=== PATIENT | female | born 1990 | race Caucasian/White ===

== ENCOUNTER 2021-07-17 07:08 | Outpatient (REF) | payer OTHER, SELFPAY ==
[2021-07-17 11:19] LABS: MANUAL DIFF FLAG NO
[2021-07-17 11:30] LABS: Basophils Percent Auto 0.4 % (0-2); Eosinophils Absolute Auto 0.3 X10*3/uL (0.0-0.4); Eosinophils Percent Auto 3.6 % (0-4); Hematocrit 41.3 % (37.0-47.0); Imm Gran Abs Auto 0.02 X10*3/uL (0.00-0.03); Imm Gran Pct Auto 0.3 % (0.0-0.4); Lymphocytes Absolute Auto 2.7 X10*3/uL (1.2-4.9); Lymphocytes Percent Auto 35.7 % (20-40); Mean Corpuscular HGB Conc 33.9 g/dl (31.0-35.0); Mean Corpuscular Hemoglobin 30.8 pg (27.0-33.0); Mean Corpuscular Volume 90.8 fL (80.0-98.0); Mean Platelet Volume 11.2 fL (9.4-12.3); Monocytes Absolute Auto 0.8 X10*3/uL (0.1-1.2); Neutrophils Absolute Auto 3.8 x10*3/uL (2.0-8.3); Platelet Count 213 X10*3/uL (160-400); Red Blood Count 4.55 X10*6/uL (4.20-5.50); White Blood Count 7.6 X10*3/uL (4.8-10.8)
[2021-07-17 11:43] LABS: Alanine Aminotransferase 12 U/L (0-31); Albumin Level 4.2 g/dL (3.5-5.0); Alkaline Phosphatase 31 U/L (39-117); Anion Gap 12 (12-20); Aspartate Amino Transferase 13 U/L (5-31); Bilirubin Total 0.6 mg/dL (0.0-1.0); Blood Urea Nitrogen 10 mg/dL (9-16); Calcium 8.9 mg/dL (8.4-10.2); Carbon Dioxide 23 mmol/L (22-29); Chloride 108 mmol/L (96-108); Cholesterol 128 mg/dL; Estimated Glomerular Filt Rate > 60; Glucose Fasting 88 mg/dL (60-99); HDL Cholesterol 50 mg/dL; LDL Cholesterol Calculated 66 mg/dl; Sodium 139 mmol/L (135-145); Total Protein 6.9 g/dL (6.5-8.0); Triglycerides 60 mg/dL
[2021-07-17 12:03] LABS: TSH reflex Free T4 1.27 uIU/mL (0.32-4.0)
== END 2021-07-17 07:09 | disposition home or self-care (01) ==
LOC: HO.HMGCLDS 07:08
PROVIDERS: PCP Internal Medicine; Visit Provider Internal Medicine
DX: Z00.01 Encounter for general adult medical examination with abnormal findings (principal); L74.510 Primary focal hyperhidrosis, axilla
CPT/HCPCS: 36415; 80053; 80061; 84443; 85025

== ENCOUNTER 2023-08-04 14:28 | Outpatient (AMB) | payer OTHER, SELFPAY ==
[2023-08-04 14:31] VITALS: BP 112/66; PULSE 94; O2SAT 98; BMI 20.6
--- NOTE | 2023-08-04 14:31 | A.OFFPC_ITS ---
Vital Signs 08/04/23 14:31 Height 5 ft 4 in Weight 120 lb 2 oz BMI 20.6 BP 112/66 Blood Pressure Location Rt brachial Position Sitting Pulse 94 Pulse Source Pulse Oximeter Pulse Oximetry (%) 98 Oxygen Delivery Method Room Air Intake Visit Reasons: ED F/U Double Vision ~ Blow Pit Helper Required: No Accompanied by: Self / Same As Patient Allergies No Known Allergies Allergy (Verified 08/04/23 14:34) Medication List - Last Reconciled 08/04/23 by Dae Stapleton MD No Known Home Meds Tobacco use date assessed: 08/04/23 Dental Screening Dental Screen Date: 08/04/23 Did you have a dental visit in the last 12 months?: Yes Did you have a dental problem in the last 6 months where you did not have access to dental care?: No Was dental information given to patient?: Patient has dentist HPI ED F/U Double Vision ~ HPI Details Patient is 33-year-old female came in today to have emergency room discharge visit dated 07/27/2023 [facility]. Patient presented to emergency room with chief complaint of difficulty in vision. Patient states she woke up in the morning and began to feel vision changes she was having diplopia, . She had difficulty walking due to double vision There was no numbness or tingling in hands or feet. There were no other symptoms no nausea vomiting chest pain shortness Of breath. No headache. However she has a family history of migraine headache Patient also have allergies and sometimes feel pressure around forehead, Zyrtec helps relieve that pressure. Patient also had COVID infection last year in July In the hospital Patient had CT of head and CTA of head and neck which were normal Chest x-ray was normal EKG was normal Labs were within normal limit Neurology team recommended additional labs Like ESR/CRP, TSH, hemoglobin A1c, myasthenia labs including binding, blocking, modulating and Anti MUSK Patient says that they were drawn but not available at this time She is back to her normal baseline there is no more visual changes no other neurological symptoms I will be placing a referral for her to be evaluated by Neurology as an outpatient. Possibility of complicated migraine discussed with the patient [facility] Family History Father No problems noted. Mother No problems noted. Maternal Uncle Skin cancer Social History Housing: House Patient Tobacco Use Status: Never used Tobacco e-Cigarette/Vaping Use: Never Used service: No Current occupational status: employed Cognitive needs: No Hearing needs: No Vision needs: Yes Questionnaire PHQ-9 Over the last 2 weeks, how often have you been bothered by any of the following problems? 1. Little interest or pleasure in doing things: not at all 2. Feeling down, depressed, or hopeless: not at all 3. Trouble falling or staying asleep, or sleeping too much: not at all 4. Feeling tired or having little energy: not at all 5. Poor appetite or overeating: not at all 6. Feeling bad about yourself - or that you are a failure or have let yourself or your family down: not at all 7. Trouble concentrating on things, such as reading the newspaper or watching television: not at all 8. Moving or speaking so slowly that other people could have noticed. Or the opposite - being so fidgety or restless that you have been moving around a lot more than usual: not at all 9. Thoughts that you would be better off or of hurting yourself in some way: not at all Total score: 0 Depression Screening Interpretation: Negative Depression Screening Done: Yes 99505 - PHQ-9 Billing: Yes Source: Developed by Drs. Mayur Franks, Ladonna Jackson, Macario Jordan and colleagues, with an educational katrina from [employer]. Thrive Questionnaire Date Thrive assessed: 08/04/23 I am a: Patient What is your living situation today?: I have a steady place to live Within the past 12 months, did the food you bought not last and you didn't have the money to get more?: Never true Within the past 12 months, did you worry whether your food would run out before you got money to buy more?: Never true Do you have trouble paying for medicines?: No Do you have trouble getting transportation to medical appointments?: No Do you have trouble paying your heating and electricity bill?: No Do you have trouble taking care of your child, family member or friend?: No Do you have trouble with day-to-day activities such as bathing, preparing meals, shopping, managing finances, etc.?: No Are you currently unemployed and looking for a job?: No Are you interested in more education?: No Please select the resources that you would like help with: None Currently or been in a relationship where the following occur: no concerns repo rted AUDIT C Alcohol Use Questionnaire (AUDIT-C) 1. How often do you have a drink containing alcohol?: Monthly or less 2. How many drinks containing alcohol do you have on a typical day when you are drinking?: 1 or 2 Total Score: 1 Score Reviewed/Action Taken: Yes LEXY-7 AMB Questionnaire LEXY-7 Date LEXY - 7 assessed: 08/04/23 Feeling nervous, anxious, or on edge: 0 = Not at all Not being able to stop or control worryin = Not at all Worrying too much about different things: 0 = Not at all Trouble relaxin = Not at all Being so restless that it is hard to sit still: 0 = Not at all Becoming easily annoyed or irritable: 0 = Not at all Feeling afraid as if something awful might happen: 0 = Not at all Total LEXY-7 score (0-4 normal; 5-9 mild; 10-14 moderate; 15-21 severe): 0 Source: Developed by Drs. Mayur Franks, Ladonna Jackson, Macario Jordan and colleagues, with an educational katrina from [employer]. LEXY-7 Assessment Billing LEXY-7 Assessment Tool: LEXY-7 Assessment 10199 Review of Systems Const Denies chills, Denies fever(s), Denies night sweats and Denies weight loss Eyes Denies blurry vision and Denies eye discharge ENT Denies dysphagia, Denies vertigo, Denies disequilibrium, Denies tinnitus, Denies sinus pressure and Denies sore throat Card Denies acrocyanosis, Denies chest pain at rest, Denies chest pain with activity, Denies syncope, Denies lightheadedness, Denies palpitations and Denies dyspnea Resp Denies chest congestion, Denies cough, Denies hemoptysis, Denies pain with cough and Denies dyspnea GI Denies dysphagia, Denies fecal incontinence, Denies diarrhea and Denies nausea Musc Denies tingling Skin/Breast Denies breast pain, Denies pruritus, Denies non-healing lesions, Denies rash and Denies jaundice Neuro Denies vertigo, Denies syncope, Denies tingling, Denies paresthesias, Denies tremor(s) and Denies disequilibrium Psych Denies panic attacks and Denies paranoia Endo Denies cold intolerance, Denies heat intolerance and Denies palpitations [place]/Lymph Denies easy bleeding Physical exam (Primary Care) Vital Signs: Last Vital Signs Pulse 94 08/04/23 14:31 BP 112/66 08/04/23 14:31 Pulse Ox 98 08/04/23 14:31 Oxygen Delivery Method Room Air 08/04/23 14:31 BMI result Body Mass Index 20.6 Tobacco/Smoking Status: Tobacco use Status Tobacco use date assessed 08/04/23 08/04/23 14:32 Patient Tobacco Use Status Never used Tobacco 08/04/23 14:32 e-Cigarette/Vaping Use Never Used 08/04/23 14:32 Depression Screening Interpretation: Negative Thrive Assessment: Date of Thrive Assessment Date Thrive assessed 06/04/21 08/04/23 14:32 Currently or been in a relationship where the following occur: no concerns r eported Const General: cooperative, comfortable and no acute distress Orientation/consciousness: patient oriented x3 HENMT Head: Yes normocephalic and Yes atraumatic Ears: hearing grossly normal bilaterally and external ears normal General nose exam: Normal external nose present Face and sinus: No erythema and No edema Mouth: lip normal and no drooling Eyes General: appearance normal, both eyes and all related structures Eyelids: Yes eyelids normal Conjunctivae: conjunctivae normal Sclerae: sclerae normal Pupils: Equal, round and reactive pupils present EOM: EOMs intact bilaterally Neck Neck: Yes trachea midline and Yes supple Resp Effort & Inspection: normal respiratory effort, no audible wheezes and no cough Auscultation: clear to auscultation bilaterally Cardio Rhythm: regular rhythm Heart sounds: S1 normal heart sound present and S2 normal heart sound present Skin General skin exam: elasticity normal and turgor normal Neuro General: patient oriented x3 and gait normal Cranial nerves: Yes Equal, round and reactive pupils present Extrem Left upper extremity: no edema Right lower extremity: no edema Psych Appearance: grossly normal Mental Status: mental status grossly normal Speech and movement: Normal speech and movement present Affect: normal affect Attitude: cooperative Thought process: Normal thought process present Thought content: Normal thought content present Insight: Good insight present (Psych) Judgement: Good judgement present (Psych) Assessment and Plan Assessment & Plan (1) Diplopia: Code(s): H53.2 - Diplopia (2) Blurring of vision: Code(s): H53.8 - Other visual disturbances Plan Patient is 33-year-old female came in today to have emergency room discharge visit dated 07/27/2023 [facility]. Patient presented to emergency room with chief complaint of difficulty in vision. Patient states she woke up in the morning and began to feel vision changes she was having diplopia, . She had difficulty walking due to double vision There was no numbness or tingling in hands or feet. There were no other symptoms no nausea vomiting chest pain shortness Of breath. No headache. However she has a family history of migraine headache Patient also have allergies and sometimes feel pressure around forehead, Zyrtec helps relieve that pressure. Patient also had COVID infection last year in July In the hospital Patient had CT of head and CTA of head and neck which were normal Chest x-ray was normal EKG was normal Labs were within normal limit Neurology team recommended additional labs Like ESR/CRP, TSH, hemoglobin A1c, myasthenia labs including binding, blocking, modulating and Anti MUSK Patient says that they were drawn but not available at this time She is back to her normal baseline there is no more visual changes no other neur ological symptoms I will be placing a referral for her to be evaluated by Neurology as an outpatient. Possibility of complicated migraine discussed with the patient Orders: Referrals Neurology Referral H53.2 - Diplopia, H53.8 - Other visual disturbances Coding Level of Care Code Est Pt Level 4 (50227) Diagnoses Diplopia H53.2 Blurring of vision H53.8 Additional Codes LEXY-7 Assessment Billing - LEXY-7 Assessment Tool: LXEY-7 Assessment 35419 ([id number])
== END 2023-08-04 16:44 | disposition home or self-care (01) ==
PROVIDERS: PCP Internal Medicine; Visit Provider Internal Medicine
DX: H53.2 Diplopia (principal); H53.8 Other visual disturbances
CPT/HCPCS: 99214

== ENCOUNTER 2023-09-02 12:52 | Outpatient (REF) | payer OTHER, SELFPAY ==
[2023-09-02 14:13] LABS: C Reactive Protein < 0.10 mg/dL (< or = 0.50)
[2023-09-02 14:20] LABS: Erythrocyte Sedimentation Rate 2 MM/HR (0-20)
[2023-09-04 02:19] LABS: Lyme Abs Screen <0.90 index
[2023-09-05 11:27] LABS: Anti Nuclear Antibody Screen NEGATIVE (NEGATIVE)
== END 2023-09-02 12:53 | disposition home or self-care (01) ==
LOC: HO.LAB 12:52
PROVIDERS: PCP Internal Medicine; Visit Provider Psychiatry & Neurology Neurology
DX: G37.9 Demyelinating disease of central nervous system, unspecified (principal)
CPT/HCPCS: 36415; 85652; 86038; 86140; 86617; 86618

== ENCOUNTER 2024-01-08 08:15 | Outpatient (AMB) | payer OTHER, SELFPAY ==
[2024-01-08 08:23] VITALS: BP 112/68; PULSE 93; TEMP 36.8; O2SAT 98; BMI 20.3
--- NOTE | 2024-01-08 08:23 | A.OFFPC_ITS ---
Vital Signs 01/08/24 08:23 Height 5 ft 4 in Weight 118 lb 6 oz BMI 20.3 BP 112/68 Blood Pressure Location Rt brachial Position Sitting Pulse 93 Pulse Source Pulse Oximeter Temp 98.3 F Temp Source Oral Pulse Oximetry (%) 98 Oxygen Delivery Method Room Air Intake Visit Reasons: Annual PE Allergies No Known Allergies Allergy (Verified 01/08/24 08:26) Medication List - Last Reconciled 01/08/24 by Dae Stapleton MD No Known Home Meds Tobacco use date assessed: 01/08/24 Dental Screening Dental Screen Date: 01/08/24 Did you have a dental visit in the last 12 months?: Yes Did you have a dental problem in the last 6 months where you did not have access to dental care?: No Was dental information given to patient?: Patient has dentist HPI Annual PE HPI Details Patient is a 34-year-old female Came in today for sick visit Patient woke up this morning with high fever of 102, sore throat and dry cough She came in today to have a COVID and RSV/flu test Patient works from home she does not need any letters Test taken Patient will reschedule her physical exam Patient was instructed take lots of fluid add some vitamin-C and rest As symptoms progress she is to get back to me. [facility] Family History Father No problems noted. Mother No problems noted. Maternal Uncle Skin cancer Social History Housing: House Patient Tobacco Use Status: Never used Tobacco e-Cigarette/Vaping Use: Never Used service: No Current occupational status: employed Cognitive needs: No Hearing needs: No Vision needs: Yes Questionnaire PHQ-9 Over the last 2 weeks, how often have you been bothered by any of the following problems? 1. Little interest or pleasure in doing things: not at all 2. Feeling down, depressed, or hopeless: not at all 3. Trouble falling or staying asleep, or sleeping too much: not at all 4. Feeling tired or having little energy: several days 5. Poor appetite or overeating: not at all 6. Feeling bad about yourself - or that you are a failure or have let yourself o r your family down: not at all 7. Trouble concentrating on things, such as reading the newspaper or watching television: not at all 8. Moving or speaking so slowly that other people could have noticed. Or the opposite - being so fidgety or restless that you have been moving around a lot more than usual: not at all 9. Thoughts that you would be better off or of hurting yourself in some way: not at all Total score: 1 Depression Screening Interpretation: Negative Depression Screening Done: Yes 85209 - PHQ-9 Billing: Yes Source: Developed by Drs. Mayur Franks, Ladonna Jackson, Macario garza nd colleagues, with an educational katrina from [employer]. Thrive Questionnaire Date Thrive assessed: 01/08/24 I am a: Patient What is your living situation today?: I have a steady place to live Within the past 12 months, did the food you bought not last and you didn't have the money to get more?: Never true Within the past 12 months, did you worry whether your food would run out before you got money to buy more?: Never true Do you have trouble paying for medicines?: No Do you have trouble getting transportation to medical appointments?: No Do you have trouble paying your heating and electricity bill?: No Do you have trouble taking care of your child, family member or friend?: No Do you have trouble with day-to-day activities such as bathing, preparing meals, shopping, managing finances, etc.?: No Are you currently unemployed and looking for a job?: No Are you interested in more education?: No Please select the resources that you would like help with: None Currently or been in a relationship where the following occur: no concerns reported THRIVE Score: 0 AUDIT C Alcohol Use Questionnaire (AUDIT-C) 1. How often do you have a drink containing alcohol?: 2-3 times a week 2. How many drinks containing alcohol do you have on a typical day when you are drinking?: 1 or 2 3. How often do you have six or more drinks on one occasion?: Never Total Score: 3 Score Reviewed/Action Taken: Yes LEXY-7 AMB Questionnaire LEXY-7 Date LEXY - 7 assessed: 01/08/24 Feeling nervous, anxious, or on edge: 0 = Not at all Not being able to stop or control worryin = Not at all Worrying too much about different things: 0 = Not at all Trouble relaxin = Not at all Being so restless that it is hard to sit still: 0 = Not at all Becoming easily annoyed or irritable: 0 = Not at all Feeling afraid as if something awful might happen: 0 = Not at all Total LEXY-7 score (0-4 normal; 5-9 mild; 10-14 moderate; 15-21 severe): 0 Source: Developed by Drs. Mayur Franks, Ladonna Jackson, Macario Jordan and colleagues, with an educational katrina from [employer]. LEXY-7 Assessment Billing LEXY-7 Assessment Tool: LEXY-7 Assessment 75715 Review of Systems Const Reports as per HPI Eyes Denies change in vision ENT Denies bleeding gums, Denies dental pain, Denies ear discharge and Denies mouth pain Card Denies chest pain at rest, Denies chest pain with activity, Denies syncope and Denies irregular heart rhythm Resp Denies hemoptysis and Denies stridor GI Denies diarrhea and Denies vomiting Musc Denies as per HPI Skin/Breast Denies skin ulcer and Denies sores Neuro Denies syncope Physical exam (Primary Care) Vital Signs: Last Vital Signs Temp 98.3 F 01/08/24 08:23 Pulse 93 01/08/24 08:23 BP 112/68 01/08/24 08:23 Pulse Ox 98 01/08/24 08:23 Oxygen Delivery Method Room Air 01/08/24 08:23 BMI result Body Mass Index 20.3 Tobacco/Smoking Status: Tobacco use Status Tobacco use date assessed 01/08/24 01/08/24 08:27 Patient Tobacco Use Status Never used Tobacco 01/08/24 08:27 e-Cigarette/Vaping Use Never Used 01/08/24 08:27 PHQ-9: PHQ-9 Score PHQ-9: Total score 1 01/08/24 08:27 Depression Screening Interpretation: Negative Thrive Assessment: Date of Thrive Assessment Date Thrive assessed 01/08/24 01/08/24 08:27 Currently or been in a relationship where the following occur: no concerns repor arline Const General: cooperative and comfortable Orientation/consciousness: patient oriented x3 HENMT Head: Yes normocephalic and Yes atraumatic Ears: external ears normal General nose exam: Normal external nose present Eyes General: appearance normal, both eyes and all related structures Eyelids: Yes eyelids normal Pupils: Equal, round and reactive pupils present EOM: EOMs intact bilaterally Neck Neck: Yes trachea midline and Yes supple Resp Effort & Inspection: normal respiratory effort Auscultation: clear to auscultation bilaterally Skin General skin exam: elasticity normal and turgor normal Neuro General: patient oriented x3 and moves all extremities Cranial nerves: Yes Equal, round and reactive pupils present Gait exam (Neuro): Normal gait present Extrem Right upper extremity: no edema Psych Mental Status: mental status grossly normal Assessment and Plan Assessment & Plan (1) Viral respiratory illness: Code(s): J98.8 - Other specified respiratory disorders; B97.89 - Other viral agents as the cause of diseases classified elsewhere Plan Patient is a 34-year-old female Came in today for sick visit Patient woke up this morning with high fever of 102, sore throat and dry cough She came in today to have a COVID and RSV/flu test Patient works from home she does not need any letters Test taken Patient will reschedule her physical exam Patient was instructed take lots of fluid add some vitamin-C and rest As symptoms progress she is to get back to me. Orders: Orders SARS-CoV2/FLU/RSV Today R09.89 - Other specified symptoms and signs involving the circulatory and respiratory systems Coding Level of Care Code Est Pt Level 3 (94756) Diagnoses Viral respiratory illness J98.8; B97.89 Additional Codes LEXY-7 Assessment Billing - LEXY-7 Assessment Tool: LEXY-7 Assessment 81149 ([id number])
== END 2024-01-08 08:39 | disposition home or self-care (01) ==
PROVIDERS: PCP Internal Medicine; Visit Provider Internal Medicine
DX: J98.8 Other specified respiratory disorders (principal); B97.89 Other viral agents as the cause of diseases classified elsewhere
CPT/HCPCS: 99213

== ENCOUNTER 2024-01-08 10:30 | Outpatient (REF) | payer OTHER, SELFPAY ==
[2024-01-08 11:22] LABS: Influenza A PCR NEGATIVE (Negative); Influenza B PCR NEGATIVE (Negative); Resp Syncy Virus RNA Qual PCR NEGATIVE (Negative); SARS COV2 PCR INHOUSE NEGATIVE (Negative)
== END 2024-01-08 10:31 | disposition home or self-care (01) ==
LOC: HO.HMGCLNP 10:30
PROVIDERS: Visit Provider Internal Medicine
DX: R09.89 Other specified symptoms and signs involving the circulatory and respiratory systems (principal)
CPT/HCPCS: 0241U

== ENCOUNTER 2024-02-10 09:18 | Outpatient (AMB) | payer OTHER, SELFPAY ==
--- NOTE | 2024-02-10 09:24 | A.OFFPC_ITS ---
Vital Signs 02/10/24 09:25 Height 5 ft 4 in Weight 117 lb BMI 20.1 BP 110/70 Blood Pressure Location Rt brachial Position Sitting Pulse 68 Pulse Source Pulse Oximeter Pulse Oximetry (%) 99 Oxygen Delivery Method Room Air Intake Visit Reasons: Annual PE Allergies No Known Allergies Allergy (Verified 02/10/24 09:25) Medication List - Last Reconciled 02/10/24 by Dae Stapleton MD No Known Home Meds Tobacco use date assessed: 01/08/24 Dental Screening Dental Screen Date: 01/08/24 HPI Annual PE HPI Details Patient is a 34-year-old female came in today for physical examination July patient had blurring of vision diplopia She was evaluated in emergency room, followed by Neurology visit Dr. Robles Patient had MRI of brain which showed certain findings however symptoms disappeared. She will be having repeat MRI in fall with a visit with Neurology Currently patient is doing well and offer no complaints. She has OBGYN at [facility] last visit was September of this year Lab order placed to be done fasting [facility] Family History Father No problems noted. Mother No problems noted. Maternal Uncle Skin cancer Social History Housing: House Patient Tobacco Use Status: Never used Tobacco e-Cigarette/Vaping Use: Never Used service: No Current occupational status: employed Cognitive needs: No Hearing needs: No Vision needs: Yes Questionnaire Thrive Questionnaire Date Thrive assessed: 01/08/24 LEXY-7 AMB Questionnaire LEXY-7 Date LEXY - 7 assessed: 01/08/24 Source: Developed by Drs. Mayur Franks, Ladonna Jackson, Macario Jordan and colleagues, with an educational katrina from [employer]. Review of Systems Const Denies chills, Denies fever(s) and Denies headache(s) Eyes Denies blurry vision ENT Denies headache(s), Denies nasal discharge, Denies nasal obstruction, Denies odynophagia and Denies sinus pain Card Denies chest pain at rest and Denies chest pain with activity Resp Denies cough and Denies hemoptysis GI Denies diarrhea, Denies odynophagia, Denies vomiting and Denies hematemesis Reports as per HPI Musc Denies abnormal gait Skin/Breast Reports as per HPI Neuro Denies Neuro-related abnormal movements, Denies Abnormal speech present, Denies abnormal gait, Denies headache(s) and Denies Sensory deficit (Neuro) Psych Denies mood swings and Denies paranoia Endo Reports as per HPI [place]/Lymph Reports as per HPI Aller/Immun Reports as per HPI Physical exam (Primary Care) Vital Signs: Last Vital Signs Pulse 68 02/10/24 09:25 BP 110/70 02/10/24 09:25 Pulse Ox 99 02/10/24 09:25 Oxygen Delivery Method Room Air 02/10/24 09:25 BMI result Body Mass Index 20.1 Tobacco/Smoking Status: Tobacco use Status Tobacco use date assessed 01/08/24 02/10/24 09:27 Patient Tobacco Use Status Never used Tobacco 02/10/24 09:27 e-Cigarette/Vaping Use Never Used 02/10/24 09:27 Thrive Assessment: Date of Thrive Assessment Date Thrive assessed 01/08/24 02/10/24 09:27 Const General: cooperative, comfortable and no acute distress Orientation/consciousness: patient oriented x3 HENMT Head: Yes normocephalic and Yes atraumatic Eyes General: appearance normal, both eyes and all related structures Pupils: Equal, round and reactive pupils present EOM: EOMs intact bilaterally Neck Neck: Yes supple and No lymphadenopathy Thyroid: Thyroid normal Lymphatic: no lymphadenopathy noted Resp Effort & Inspection: normal respiratory effort and able to speak in complete sentences Auscultation: clear to auscultation bilaterally Cardio Heart sounds: S1 normal heart sound present and S2 normal heart sound present GI Palpation (GI): Soft to palpation and nontender Auscultation: normal bowel sounds General: Yes no CVA tenderness Back/Spine/Pelvis Back: no CVA tenderness Skin General skin exam: elasticity normal and turgor normal Neuro General: patient oriented x3 and gait normal Cranial nerves: Yes Equal, round and reactive pupils present Speech: No Abnormal speech present Sensory Exam: No Sensory deficit (Neuro) Coordination: tandem gait normal and Romberg test negative Extrem General: Yes normal exam except as noted and No edema Assessment and Plan Assessment & Plan (1) Adult general medical examination: Code(s): Z00.00 - Encounter for general adult medical examination without abnormal findings (2) Blurring of vision: Code(s): H53.8 - Other visual disturbances Plan Patient is a 34-year-old female came in today for physical examination July patient had blurring of vision diplopia She was evaluated in emergency room, followed by Neurology visit Dr. Robles Patient had MRI of brain which showed certain findings however symptoms disappeared. She will be having repeat MRI in fall with a visit with Neurology Currently patient is doing well and offer no complaints. She has OBGYN at [facility] last visit was September of this year Lab order placed to be done fasting Orders: Orders Comprehensive [place]. Panel Fast Today H53.8 - Other visual disturbances, Z00.00 - Encounter for general adult medical examination without abnormal findings TSH reflex Free T4 Today H53.8 - Other visual disturbances, Z00.00 - Encounter for general adult medical examination without abnormal findings Vitamin B12 Today H53.8 - Other visual disturbances, Z00.00 - Encounter for general adult medical examination without abnormal findings Vitamin D 25-OH (D2 and D3) Today H53.8 - Other visual disturbances, Z00.00 - Encounter for general adult medical examination without abnormal findings Complete Blood Count Auto Diff Today H53.8 - Other visual disturbances, Z00.00 - Encounter for general adult medical examination without abnormal findings Lipid Panel Today H53.8 - Other visual disturbances, Z00.00 - Encounter for general adult medical examination without abnormal findings Coding Level of Care Code Est Pt Prev Care 18-39y(97022) Diagnoses Adult general medical examination Z00.00 Blurring of vision H53.8
[2024-02-10 09:25] VITALS: BP 110/70; PULSE 68; O2SAT 99; BMI 20.1
== END 2024-02-10 09:45 | disposition home or self-care (01) ==
PROVIDERS: PCP Internal Medicine; Visit Provider Internal Medicine
DX: Z00.00 Encounter for general adult medical examination without abnormal findings (principal); H53.8 Other visual disturbances
CPT/HCPCS: 99395

== ENCOUNTER 2024-02-13 07:49 | Outpatient (REF) | payer OTHER, SELFPAY ==
[2024-02-13 11:29] LABS: MANUAL DIFF FLAG NO
[2024-02-13 11:34] LABS: Basophils Absolute Auto 0.1 X10*3/uL (0.0-0.2); Basophils Percent Auto 0.6 % (0-2); Eosinophils Absolute Auto 0.4 X10*3/uL (0.0-0.4); Eosinophils Percent Auto 3.6 % (0-4); Hemoglobin 14.1 g/dl (12.0-16.0); Imm Gran Abs Auto 0.08 X10*3/uL (0.00-0.03); Imm Gran Pct Auto 0.8 % (0.0-0.4); Lymphocytes Absolute Auto 2.2 X10*3/uL (1.2-4.9); Lymphocytes Percent Auto 22.1 % (20-40); Mean Corpuscular HGB Conc 33.6 g/dl (31.0-35.0); Mean Corpuscular Hemoglobin 30.7 pg (27.0-33.0); Mean Corpuscular Volume 91.3 fL (80.0-98.0); Mean Platelet Volume 11.4 fL (9.4-12.3); Monocytes Absolute Auto 0.7 X10*3/uL (0.1-1.2); Monocytes Percent Auto 7.4 % (2-11); Neutrophils Absolute Auto 6.4 x10*3/uL (2.0-8.3); Neutrophils Percent Auto 65.5 % (45-73); Platelet Count 217 X10*3/uL (160-400); Red Cell Distribution Width 14.2 % (11.0-16.0); White Blood Count 9.8 X10*3/uL (4.8-10.8)
[2024-02-13 12:04] LABS: TSH reflex Free T4 1.08 uIU/mL (0.32-4.0)
[2024-02-13 12:06] LABS: Alanine Aminotransferase 12 U/L (0-31); Alkaline Phosphatase 42 U/L (39-117); Anion Gap 10 (12-20); Aspartate Amino Transferase 17 U/L (5-31); Bilirubin Total 0.6 mg/dL (0.0-1.0); Blood Urea Nitrogen 11 mg/dL (9-16); Calcium 8.9 mg/dL (8.4-10.2); Carbon Dioxide 26 mmol/L (22-29); Chloride 107 mmol/L (96-108); Cholesterol 123 mg/dL (<200); Estimated Glomerular Filt Rate > 60; Glucose Fasting 83 mg/dL (60-99); HDL Cholesterol 55 mg/dL (>40); LDL Cholesterol Calculated 60 mg/dL (<100); Potassium 3.9 mmol/L (3.3-5.1); Sodium 139 mmol/L (135-145); Total Protein 6.7 g/dL (6.5-8.0); Triglycerides 43 mg/dL (<150)
[2024-02-13 12:12] LABS: Vitamin B12 335 pg/mL (200-900)
[2024-02-18 11:48] LABS: Vitamin D 25-OH, D2 <4 ng/mL; Vitamin D 25-OH, D3 24 ng/mL; Vitamin D 25-OH, Total 24 ng/mL (30-100)
== END 2024-02-13 07:50 | disposition home or self-care (01) ==
LOC: HO.HMGCLDS 07:49
PROVIDERS: PCP Internal Medicine; Visit Provider Internal Medicine
DX: Z00.00 Encounter for general adult medical examination without abnormal findings (principal); H53.8 Other visual disturbances
CPT/HCPCS: 36415; 80053; 80061; 82306; 82607; 84443; 85025

== ENCOUNTER 2024-07-15 12:32 | Outpatient (AMB) | payer OTHER, SELFPAY ==
[2024-07-15 12:49] VITALS: BP 110/72; PULSE 85; O2SAT 98; BMI 20.4
--- NOTE | 2024-07-15 12:49 | AM.OFFWIN_ITS ---
Intake Vital Signs 07/15/24 12:49 Height 5 ft 4 in Weight 119 lb BMI 20.4 BP 110/72 Blood Pressure Location Lt brachial Position Sitting Pulse 85 Pulse Source Pulse Oximeter Pulse Oximetry (%) 98 Intake Visit Reasons: EP-? left ear infection Intake Note: pt is here for ear infection possibly, pt states she hears her heart beat in her ear for a few days Patient Tobacco Use Status: Never used Tobacco Allergies No Known Allergies Allergy (Verified 07/15/24 12:52) Do you need a note to return to daycare/school/sports/work: No HPI HPI Comments History of Present Illness Details History of Present Illness The patient is a 34-year-old female presenting with left ear discomfort and congestion. She reports that there was an unusual sensation in her left ear starting last week, and she experienced a feeling of warmth in the same ear yesterday. There are no changes in her hearing, no discharge, and the right ear remains unaffected. The patient has previously been using allergy medication for nasal congestion which occurred last week. Despite this, she notices persistent discomfort, but denies any symptoms indicative of an active ear infection. . [facility] Family History Father No problems noted. Mother No problems noted. Maternal Uncle Skin cancer Social History Housing: House Patient Tobacco Use Status: Never used Tobacco e-Cigarette/Vaping Use: Never Used service: No Current occupational status: employed Cognitive needs: No Hearing needs: No Vision needs: Yes Physical Exam Vital Signs: Last Vital Signs Pulse 85 07/15/24 12:49 BP 110/72 07/15/24 12:49 Pulse Ox 98 07/15/24 12:49 BMI result Body Mass Index 20.4 Const General: cooperative, healthy appearing, comfortable and no acute distress Orientation/consciousness: patient oriented x3 Limitations: no limitations HEENT Head: Yes normal to inspection Ears: hearing grossly normal bilaterally, external ears normal and TM's normal bilaterally (Fluid behind TM on the left ear, no signs of infection) General nose exam: Normal external nose present, Normal nares present and No nasal discharge present Face and sinus: Yes normal facial exam Mouth: Normal oral and palatal mucosa present and moist mucous membranes Throat: Yes tonsils normal, Yes uvula midline and Yes posterior oropharynx abnormal (Erythema) Eyes General: appearance normal, both eyes and all related structures Neck Neck: Yes normal visual inspection Resp Effort & Inspection: normal respiratory effort, able to speak in complete sente nces, no respiratory distress, not tachypneic, no tripod positioning and no use of accessory muscles Skin General skin exam: no rashes or lesions noted Neuro General: patient oriented x3 Extrem General: Yes normal to inspection and Yes no clubbing, cyanosis or edema Assessment & Plan Assessment & Plan (1) Acute otitis media with effusion of left ear: Code(s): H65.192 - Other acute nonsuppurative otitis media, left ear Plan: For the left ear discomfort, likely due to residual middle ear fluid, I advised the continuation of [id number] allergy medication for another week or two to help dry up any residual congestion. An actual infection was not observed upon examination. The red throat suggests ongoing allergic rhinitis, which can contribute to nasal and ear symptoms, thus supportive management with allergy medication was discussed. Patient was informed and verbally consented to the use of an ambient scribe for clinic note documentation during this visit. Coding Level of Care Code Est Pt Level 3 (32607) Diagnoses Acute otitis media with effusion of left ear H65.192
== END 2024-07-15 13:08 | disposition home or self-care (01) ==
PROVIDERS: PCP Internal Medicine; Visit Provider Physician Assistant
DX: H65.192 Other acute nonsuppurative otitis media, left ear (principal)

== ENCOUNTER → 2024-07-15 12:32 | Outpatient (BNVA) | payer OTHER, SELFPAY | PROVIDERS: PCP Internal Medicine; Visit Provider Physician Assistant ==

== ENCOUNTER 2024-10-03 13:05 | Outpatient (AMB) | payer OTHER, SELFPAY ==
--- NOTE | 2024-10-03 14:11 | MHC.OFFWIV ---
Intake Vital Signs 10/03/24 14:14 Height 5 ft 4 in Weight 119 lb BMI 20.4 BP 118/80 Blood Pressure Location Rt brachial Position Sitting Pulse 64 Pulse Source Pulse Oximeter Pulse Oximetry (%) 98 Oxygen Delivery Method Room Air Intake Visit Reasons: EP cold sores Intake Note: Patient here for cold sores that started today. she has noticed she has been getting them every couple of months. Patient Tobacco Use Status: Never used Tobacco Allergies No Known Allergies Allergy (Verified 10/03/24 14:15) Do you need a note to return to daycare/school/sports/work: No HPI HPI Comments History of Present Illness Details 34 y/o female patient who presents to the walk in clinic with c/o cold sore on mouth (Upper Lip) since this morning. She does report getting cold sores alot in the past 6 months. Denies any recent URI. Denies any new stress in her life. [facility] Medical History (Updated 10/03/24 @ 14:44 by Yesica James NP) Herpes labialis Family History Father No problems noted. Mother No problems noted. Maternal Uncle Skin cancer Social History Housing: House Patient Tobacco Use Status: Never used Tobacco e-Cigarette/Vaping Use: Never Used service: No Current occupational status: employed Cognitive needs: No Hearing needs: No Vision needs: Yes Review of Systems Const All systems reviewed & are unremarkable except as noted in HPI and below Physical Exam Vital Signs: Last Vital Signs Pulse 64 10/03/24 14:14 BP 118/80 10/03/24 14:14 Pulse Ox 98 10/03/24 14:14 Oxygen Delivery Method Room Air 10/03/24 14:14 BMI result Body Mass Index 20.4 Const General: cooperative and no acute distress Nutritional Appearance: well nourished Orientation/consciousness: patient oriented x3 HEENT Mouth/tongue images: 1. Group vesicular rash filled with clear fluid. 2. Group vesicular rash filled with clear fluid. Neuro General: patient oriented x3, gait normal and moves all extremities Psych Speech and movement: Normal speech and movement present Assessment & Plan Assessment & Plan (1) Herpes labialis: Code(s): B00.1 - Herpesviral vesicular dermatitis Plan: Ordered Valacyclovir for 7 days. Medications: New valacyclovir 1,000 mg PO BID 7 days 14 tabs 0RF B00.1 - Herpesviral vesicular dermatitis Coding Level of Care Code Est Pt Level 4 (82637) Diagnoses Herpes labialis B00.1 Time Spent (min) 20
[2024-10-03 14:14] VITALS: BP 118/80; PULSE 64; O2SAT 98; BMI 20.4
== END 2024-10-03 14:58 | disposition home or self-care (01) ==
PROVIDERS: PCP Internal Medicine; Visit Provider Nurse Practitioner Family
DX: B00.1 Herpesviral vesicular dermatitis (principal)

== ENCOUNTER → 2024-10-03 13:05 | Outpatient (BNVA) | payer OTHER, SELFPAY | PROVIDERS: PCP Internal Medicine ==

== ENCOUNTER 2024-10-25 10:22 | Outpatient (AMB) | payer OTHER, SELFPAY ==
--- NOTE | 2024-10-25 10:53 | MHC.OFFWIV ---
Intake Vital Signs 10/25/24 10:55 Weight 117 lb BP 110/70 Blood Pressure Location Rt brachial Position Sitting Pulse 77 Pulse Source Pulse Oximeter Temp 98.0 F Temp Source Oral Pulse Oximetry (%) 98 Oxygen Delivery Method Room Air Intake Visit Reasons: EP flu symptoms Intake Note: Patient here for congestion, body aches, fever and weakness that started Thursday. Patient Tobacco Use Status: Never used Tobacco Allergies No Known Allergies Allergy (Verified 10/03/24 14:15) Do you need a note to return to daycare/school/sports/work: No HPI HPI Comments History of Present Illness Details History - The patient is a 34-year-old female presenting with symptoms consistent with a Viral Upper Respiratory Infection. - She reports the onset of generalized body aches, fatigue, and viral symptoms began approximately four days ago, with intermittent symptoms and fluctuating severity. - A recorded low-grade fever (100.5?F) was noted initially 4 days ago, with subsequent resolution following the administration of acetaminophen. - The use of acetaminophen has been effective in temporary relief, indicating ongoing symptomatic management efforts. - Congestion and cough have developed more recently, with no reported dyspnea or wheezing. - A seasonal influenza vaccine was administered Physical Exam General: Cooperative, healthy appearing, comfortable and no acute distress Orientation/consciousness: Patient oriented x3 Limitations: No limitations Head: Normal to inspection Ears: Hearing grossly normal bilaterally, external ears normal and TM's normal bilaterally Nose: Normal external nose present, Normal nares present and No nasal discharge present Face and sinus: Normal facial exam and Yes sinuses nontender Mouth: Normal oral and palatal mucosa present and moist mucous membranes Throat: Yes tonsils normal, Yes uvula midline. Posterior oropharynx erythema Eyes: Appearance normal, both eyes and all related structures Neck: Normal visual inspection Respiratory: Clear to auscultation bilaterally. Normal respiratory effort, able to speak in complete sentences, Actively coughing, no respiratory distress, not tachypneic, no tripod positioning and no use of accessory muscles Cardiovascular: Regular rate and rhythm. Normal S1 and S2 Skin: No rashes or lesions noted Neuro: Patient oriented x3 Extremities: Normal to inspection and Yes no clubbing, cyanosis or edema [facility] Medical History (Updated 10/03/24 @ 14:44 by Yesica James NP) Herpes labialis Family History Father No problems noted. Mother No problems noted. Maternal Uncle Skin cancer Social History Housing: House Patient Tobacco Use Status: Never used Tobacco e-Cigarette/Vaping Use: Never Used service: No Current occupational status: employed Cognitive needs: No Hearing needs: No Vision needs: Yes Review of Systems Const All systems reviewed & are unremarkable except as noted in HPI and below Physical Exam Vital Signs: Last Vital Signs Temp 98.0 F 10/25/24 10:55 Pulse 77 10/25/24 10:55 BP 110/70 10/25/24 10:55 Pulse Ox 98 10/25/24 10:55 Oxygen Delivery Method Room Air 10/25/24 10:55 Assessment & Plan Assessment & Plan (1) Viral respiratory illness: Code(s): J98.8 - Other specified respiratory disorders; B97.89 - Other viral agents as the cause of diseases classified elsewhere Plan: The patient's ongoing symptoms are likely due to a Viral Upper Respiratory Infection. Diagnostic testing for influenza, RSV, and COVID-19 is initiated to confirm the specific viral cause. Interim management involves maintaining current use of acetaminophen with the addition of ibuprofen for more comprehensive relief of body aches and associated symptoms. The patient's influenza vaccination likely contributes to a milder presentation. Appropriate hydration is emphasized due to the use of ibuprofen. Results of viral testing are anticipated by the end of the day or the following day to direct further management if necessary. Patient was informed and verbally consented to the use of an ambient scribe for clinic note documentation during this visit Orders: Orders SARS-CoV2/FLU/RSV Today B97.89 - Other viral agents as the cause of diseases classified elsewhere, J98.8 - Other specified respiratory disorders, R09.89 - Other specified symptoms and signs involving the circulatory and respiratory systems Coding Level of Care Code Est Pt Level 3 (67301) Diagnoses Viral respiratory illness J98.8; B97.89
[2024-10-25 10:55] VITALS: BP 110/70; PULSE 77; TEMP 36.7; O2SAT 98
--- OUTSIDE RECORDS SUMMARY | 2024-10-25 12:33 | XMS_ITS | Clinical Summary ---
Author Organization [employer] Address [address] [place] [id number] Care Team Providers Care Product Grader Name Role Phone Yazmin Tam BUSINESS INFORMATION CONSULTANT Primary Care Provider [phone]- [phone] Allergies No known active allergies Medications levonorgestreL (MIRENA) 20 mcg/24 hours (8 yrs) 52 mg IUD 1 each by intrauterine route 1 (one) time Active Active Problems Problem Noted Date Diagnosed Date History of COVID-19 06/06/2022 Overview (06/06/2022): 06/02/2022 Resolved Problems Problem Noted Date Diagnosed Date Resolved Date Paronychia of finger, right 05/17/2021 06/06/2022 Immunizations Name Administration Dates Next Due COVID-19 Pfizer SARS-CoV2 mR NA PF 30mcg/0.3mL Vaccine (Purple) 08/05/2021,11/27/2020,11/06/2020 Hepatitis A 09/17/2015 Hepatitis B 06/29/2002,01/25/2002,11/03/2001 Influenza, Quad Single Dose PF 0.5mL 6+Mo 2021 Tdap 08/02/2019,09/01/2015 Typhoid Inactivated 09/17/2015 Family History Relation Status Comments Father Alive Mother Alive Social History Tobacco Use Types Packs/Day Years Used Date Smoking Tobacco: Never Smokeless Tobacco: Never Alcohol Use Standard Drinks/Week Comments Yes 0 (1 standard drink = 0.6 oz pur e alcohol) PHQ-2 Answer Date Recorded Depression Risk (PHQ2) Score 0 Comments Unknown Sex and Gender Information Value Date Recorded Sex Assigned at Not on file Legal Sex Female 5:26 AM MST Gender Identity Not on file Sexual Orientation Not on file Last Filed Vital Signs Vital Sign Reading Time Taken Comments Blood Pressure 107/69 07/28/2022 9:08 AM EST Pulse 66 07/28/2022 9:08 AM EST Temperature 36.7 ??C (98 ??F) 07/28/2022 9:08 AM EST Respiratory Rate - - Oxygen Saturation 99% 07/28/2022 9:08 AM EST Inhaled Oxygen Concentration - - Weight 50.3 kg (110 lb 12.8 oz) 07/28/2022 9:08 AM EST Height 160.3 cm (5' 3.11 ) 05/17/2021 8:56 AM ED T Body Mass Index 19.56 05/17/2021 8:56 AM EDT Plan of Treatment Health Maintenance Due Date Last Done Comments Hepatitis C Screening 1988 PHQ-9 Depression Screen 2000 LEXY-7 Anxiety Screen 01/01/2006 Annual Preventive Exam 07/28/2023 07/28/2022 COVID-19 Vaccine (4 - 2023-2 5 season) 2024 08/05/2021, 11/27/2020, 11/06/2020 Influenza Vaccine (#1) 2024 07/28/2022 Cervical Cancer Screening (Pap/HPV) 05/07/2027 05/07/2022 (Previously completed - report reviewed) DTaP,Tdap,and Td Vaccines (3 - Td or Tdap) 08/02/2029 08/02/2019, 09/01/2015 RSV Vaccine (SCDM) (1 - 1-do se 75+ series) 01/01/2063 Insurance [employer] Care Teams Product Grader Relationship Specialty Start Date End Date Yazmin Tam NP [address] [place] [id number] PCP - General Family Medicine 07/29/22
== END 2024-10-25 11:21 | disposition home or self-care (01) ==
PROVIDERS: PCP Internal Medicine; Visit Provider Physician Assistant
DX: J98.8 Other specified respiratory disorders (principal); B97.89 Other viral agents as the cause of diseases classified elsewhere

== ENCOUNTER 2024-10-25 10:22 | Outpatient (REF) | payer OTHER, SELFPAY ==
--- OUTSIDE RECORDS SUMMARY | 2024-10-25 13:52 | XMS_ITS | Clinical Summary ---
Author Organization [employer] Address [address] [place] [id number] Care Team Providers Care Info Analyst Name Role Phone Yazmin Tam AUTO FORMER MACHINE OPERATOR Primary Care Provider [phone]- [phone] Allergies No known active allergies Medications levonorgestreL [...] 75+ series) 01/01/2063 Insurance [employer] Care Teams Info Analyst Relationship Specialty Start Date End Date Yazmin Tam NP [address] [place] [phone] PCP - General Family Medicine 07/29/22
[2024-10-25 14:50] LABS: Influenza A PCR POSITIVE (Negative); Influenza B PCR NEGATIVE (Negative); Resp Syncy Virus RNA Qual PCR NEGATIVE (Negative); SARS COV2 PCR INHOUSE NEGATIVE (Negative)
== END 2024-10-25 10:23 | disposition home or self-care (01) ==
LOC: HO.LAB 10:22
PROVIDERS: PCP Internal Medicine; Visit Provider Physician Assistant
DX: R50.9 Fever, unspecified (principal); R09.89 Other specified symptoms and signs involving the circulatory and respiratory systems; B97.89 Other viral agents as the cause of diseases classified elsewhere; J98.8 Other specified respiratory disorders
CPT/HCPCS: 0241U

== ENCOUNTER 2024-10-28 14:13 | Outpatient (AMB) | payer OTHER, SELFPAY ==
--- NOTE | 2024-10-28 14:13 | A.OFFPC_ITS ---
Intake Visit Reasons: Discuss med Refill Allergies No Known Allergies Allergy (Verified 10/03/24 14:15) Medication List - Last Reconciled 10/28/24 by Dae Stapleton MD valacyclovir 1,000 mg PO BID 7 days Tobacco use date assessed: 01/08/24 Dental Screening Dental Screen Date: 01/08/24 HPI Discuss med Refill HPI Details History - The patient is a 34-year-old female pr esenting with recurrent Herpes Labialis. - Recurrent Herpes Labialis is noted wit h increased frequency since of last year. - Initially presenting with two concurre nt sores in September; typically, manageable with [id number] medication but now requires medical intervention. - Managed with a prescription valacyclov ir, that resolved prior outbreaks. - She also has a history of Influenza A, testing positive on October 25. - Symptoms began a week prior, with grad ual improvement by the day of conversation. - The patient was vaccinated against inf luenza this season, acknowledging potential for strain mismatch. Problem List - Recurrent Herpes Labialis - Influenza A Patient Instructions - Continue valacyclovir prescription me dication for active Herpes Labialis sores. - Once the active infection subsides, co mmence a daily prophylactic dose of 500 mg to prevent future outbreaks. - Ensure adequate hydration and rest, pa rticularly following the recent influenza infection. - Use Tylenol as needed for any lingerin g body aches or pain. Review of Systems - General: No fever no chills - Neurological: no dizziness - Ear nose throat: no hearing difficulty no ear pain - Cardiovascular: No syncope, no chest pain, no palpitations - Gastrointestinal: No nausea vomiting or diarrhea - Endocrine: No polyuria polydipsia no heat intolerance - Genitourinary: No dysuria , no blood in urine [facility] Medical History Herpes labialis Family History Father No problems noted. Mother No problems noted. Maternal Uncle Skin cancer Social History Housing: House Patient Tobacco Use Status: Never used Tobacco e-Cigarette/Vaping Use: Never Used service: No Current occupational status: employed Cognitive needs: No Hearing needs: No Vision needs: Yes Questionnaire Thrive Questionnaire Date Thrive assessed: 01/08/24 AUDIT C Alcohol Use Questionnaire (AUDIT-C) 2. How many drinks containing alcohol do you have on a typical day when you are drinking?: 1 or 2 3. How often do you have six or more drinks on one occasion?: Less than monthly Total Score: 1 LEXY-7 AMB Questionnaire LEXY-7 Date LEXY - 7 assessed: 01/08/24 Source: Developed by Drs. Mayur Franks, Ladonna Jackson, Macario Jordan and colleagues, with an educational katrina from [employer]. Physical exam (Primary Care) Tobacco/Smoking Status: Tobacco use Status Tobacco use date assessed 01/08/24 10/28/24 14:13 Patient Tobacco Use Status Never used Tobacco 10/28/24 14:13 e-Cigarette/Vaping Use Never Used 10/28/24 14:13 Thrive Assessment: Date of Thrive Assessment Date Thrive assessed 01/08/24 10/28/24 14:13 Telehealth Telehealth Telehealth Platform: [employer] Location of provider rendering services: practice address Location of patient: address on file Patient Identification confirmed using: Name, : Yes Telehealth method: video Patient verbally consented to treatment: Yes Patient verbally consented to billing insurance company: Yes Patient informed of any privacy concerns related to visit: Yes Minutes spent on Phone/Video with Pt.: 12 Coding Level of Care Code Tele Est Pt Level 3 (14392) Diagnoses Recurrent cold sores B00.1 Assessment & Plan Assessment & Plan (1) Recurrent cold sores: Code(s): B00.1 - Herpesviral vesicular dermatitis Category: Medical Plan History - The patient is a 34-year-old female presenting with recurrent Herpes Labialis. - Recurrent Herpes Labialis is noted with increased frequency since April/May of last year. - Initially presenting with two concurrent sores in September; typically, manageable with iqek-rjr-mmidrni medication but now requires medical intervention. - Managed with a prescription (unspecified) that resolved prior outbreaks. Reconscious outbreak treated with recent prescription, reported as effective. - She also has a history of Influenza A, testing positive on October 25. - Symptoms began a week prior, with gradual improvement by the day of conversation. - The patient was vaccinated against influenza this season, acknowledging potential for strain mismatch. Problem List - Recurrent Herpes Labialis - Influenza A Patient Instructions - Continue current prescription medication for active Herpes Labialis sores. - Once the active infection subsides, commence a daily prophylactic dose of 500 mg to prevent future outbreaks. - Ensure adequate hydration and rest, particularly following the recent influenza infection. - Use Tylenol as needed for any lingering body aches or pain. Medications: Changed From valacyclovir 1,000 mg PO BID 7 days 14 tabs 0RF B00.1 - Herpesviral vesicular dermatitis To valacyclovir 500 mg PO .qd 90 days 90 tabs 0RF B00.1 - Herpesviral vesicular dermatitis
--- OUTSIDE RECORDS SUMMARY | 2024-10-28 15:53 | XMS_ITS | Clinical Summary ---
Author Organization [employer] Address [address] [place] [address] Care Team Providers Care Access Registrar Name Role Phone Yazmin Tam BROADCAST CHIEF ENGINEER Primary Care Provider [phone] Allergies No known active allergies Medications levonorgestreL [...] 75+ series) 01/01/2063 Insurance [employer] Care Teams Access Registrar Relationship Specialty Start Date End Date Yazmin Tam NP [address] [place] [id number] PCP - General Family Medicine 07/29/22
== END 2024-10-28 15:47 | disposition home or self-care (01) ==
LOC: HO.HMCC 14:13
PROVIDERS: PCP Internal Medicine; Visit Provider Internal Medicine
DX: B00.1 Herpesviral vesicular dermatitis (principal)

== ENCOUNTER → 2024-10-28 14:13 | Outpatient (BNVA) | payer OTHER, SELFPAY | PROVIDERS: PCP Internal Medicine; Visit Provider Internal Medicine ==

== ENCOUNTER 2025-03-03 11:24 | Outpatient (AMB) | payer OTHER, SELFPAY ==
[2025-03-03 11:28] VITALS: BP 110/74; PULSE 62; RESP 16; O2SAT 98; BMI 19.9
--- NOTE | 2025-03-03 11:28 | A.OFFPC_ITS ---
Vital Signs 03/03/25 11:28 Height 5 ft 4 in Weight 116 lb BMI 19.9 BP 110/74 Blood Pressure Location Lt brachial Position Sitting Respiration 16 Pulse 62 Pulse Source Pulse Oximeter Pulse Oximetry (%) 98 Oxygen Delivery Method Room Air Intake Visit Reasons: Annual PE Ship Laborer Required: No Accompanied by: Self / Same As Patient Allergies No Known Allergies Allergy (Verified 03/03/25 11:29) Medication List - Last Reconciled 03/03/25 by Dae Stapleton MD No Known Home Meds Tobacco use date assessed: 03/03/25 Dental Screening Dental Screen Date: 03/03/25 Did you have a dental visit in the last 12 months?: Yes Did you have a dental problem in the last 6 months where you did not have access to dental care?: No Was dental information given to patient?: Patient has dentist HPI Annual PE HPI Details Physical exam appointment - The patient is a 35-year-old female pr esenting for a wellness visit. - Vitamin D deficiency was previously no arline, with the patient currently taking multivitamin supplements. - The patient reported hyperhidrosis aff ecting the axillary region, which she has learned to manage over time. - Approximately two years ago, an MRI re vealed incidental findings deemed non- concerning by her neurologist, with no active follow-up required unless symptoms change. - The patient noted frequent episodes of cold sores starting late last year, for which she completed a three-month course of valacyclovir, ending with resolution of symptoms. - Toe discoloration and potential nail i ssues started approximately two months ago, coinciding with trauma caused by wearing high heels. The patient suspects a traumatic origin rather than fungal involvement. Difficult to say, she will provide me with the nail clipping so we can evaluate for fungus, right big toe Health Maintenance - Up-to-date on GARMENT PRESSER visits - Current with breast examinations throu GARMENT PRESSER - Immunizations are current, including t etanus T-dap in 2019 - Monitoring and management of Vitamin D levels through lab tests [facility] of Care - Managed by GARMENT PRESSER at [facility] - Neurologist involved post-MRI findings Employment - [employer] with a remote work setup from home - Participates in virtual fitness progra ms during work breaks Patient Instructions - Continue current vitamin D supplementa tion - Monitor and report any recurrence of c old sores - For nail issues, consider providing a nail clipping for fungal testing or consult a roll machine operator if necessary Review of Systems - General: No fever no chills - Neurological: No headaches no dizzin ess - Ear nose throat: No sore throat no hearing difficulty no ear pain - Cardiovascular: No syncope, no chest pain, no palpitations - Gastrointestinal: No nausea vomiting or diarrhea - Endocrine: No polyuria polydipsia no heat intolerance - Genitourinary: No dysuria - Skin: No new complaints Physical Exam General: Cooperative, healthy appearing, comfortable, no acute distress Orientation: Patient oriented x3 Head: Normal to inspection Ears: Within normal limit visually Nose: Normal external nose present Face and sinus: Normal facial exam Eyes: Appearance normal, extraocular movement intact pupils reactive Neck: Normal visual inspection and supple Respiratory: Normal respiratory effort and able to speak in complete sentences. Clear to auscultation, no stridor Cardiovascular: S1 and S2 RRR GI: Normal to inspection. Soft to palpation and nontender Skin: Turgor normal, no acute findings. Neuro: Patient oriented x3, motor sensory intact, balance intact, tandem pass Extremities: Normal to inspection, except for the toenail right side, discolored [facility] Medical History Herpes labialis Family History Father No problems noted. Mother No problems noted. Maternal Uncle Skin cancer Social History Housing: House Patient Tobacco Use Status: Never used Tobacco e-Cigarette/Vaping Use: Never Used service: No Current occupational status: employed Cognitive needs: No Hearing needs: No Vision needs: Yes Questionnaire PHQ-9 Over the last 2 weeks, how often have you been bothered by any of the following problems? 1. Little interest or pleasure in doing things: not at all 2. Feeling down, depressed, or hopeless: not at all 3. Trouble falling or staying asleep, or sleeping too much: not at all 4. Feeling tired or having little energy: not at all 5. Poor appetite or overeating: not at all 6. Feeling bad about yourself - or that you are a failure or have let yourself or your family down: not at all 7. Trouble concentrating on things, such as reading the newspaper or watching television: not at all 8. Moving or speaking so slowly that other people could have noticed. Or the opposite - being so fidgety or restless that you have been moving around a lot more than usual: not at all 9. Thoughts that you would be better off or of hurting yourself in some way: not at all Total score: 0 Depression Screening Interpretation: Negative Depression Screening Done: Yes 98582 - PHQ-9 Billing: Yes Source: Developed by Drs. Mayur Franks, Ladonna Jackson, Macario Jordan and colleagues, with an educational katrina from [employer] Thrive Questionnaire Date Thrive assessed: 02/24/25 I am a: Patient What is your living situation today?: I have a steady place to live Within the past 12 months, did the food you bought not last and you didn't have the money to get more?: Never true Within the past 12 months, did you worry whether your food would run out before you got money to buy more?: Never true Do you have trouble paying for medicines?: No Do you have trouble getting transportation to medical appointments?: No Do you have trouble paying your heating and electricity bill?: No Do you have trouble taking care of your child, family member or friend?: No Do you have trouble with day-to-day activities such as bathing, preparing meals, shopping, managing finances, etc.?: No Are you currently unemployed and looking for a job?: No Are you interested in more education?: No Please select the resources that you would like help with: None Currently or been in a relationship where the following occur: No concerns reported THRIVE Score: 0 AUDIT C Alcohol Use Questionnaire (AUDIT-C) 1. How often do you have a drink containing alcohol?: 2-4 times a month 3. How often do you have six or more drinks on one occasion?: Never Total Score: 2 Score Reviewed/Action Taken: Yes LEXY-7 AMB Questionnaire LEXY-7 Date LEXY - 7 assessed: 01/08/24 Feeling nervous, anxious, or on edge: 0 = Not at all Not being able to stop or control worryin = Not at all Worrying too much about different things: 0 = Not at all Trouble relaxin = Not at all Being so restless that it is hard to sit still: 0 = Not at all Becoming easily annoyed or irritable: 0 = Not at all Feeling afraid as if something awful might happen: 0 = Not at all Total LEXY-7 score (0-4 normal; 5-9 mild; 10-14 moderate; 15-21 severe): 0 Source: Developed by Drs. Mayur Franks, Ladonna Jackson, Macario Jordan and colleagues, with an educational katrina from [employer] LEXY-7 Assessment Billing LEXY-7 Assessment Tool: LEXY-7 Assessment 29523 Physical exam (Primary Care) Vital Signs: Last Vital Signs Pulse 62 03/03/25 11:28 Resp 16 03/03/25 11:28 BP 110/74 03/03/25 11:28 Pulse Ox 98 03/03/25 11:28 Oxygen Delivery Method Room Air 03/03/25 11:28 BMI result Body Mass Index 19.9 Tobacco/Smoking Status: Tobacco use Status Tobacco use date assessed 03/03/25 03/03/25 11:36 Patient Tobacco Use Status Never used Tobacco 03/03/25 11:36 e-Cigarette/Vaping Use Never Used 03/03/25 11:36 PHQ-9: PHQ-9 Score PHQ-9: Total score 0 03/03/25 11:48 Depression Screening Interpretation: Negative Thrive Assessment: Date of Thrive Assessment Date Thrive assessed 02/24/25 03/03/25 11:36 Currently or been in a relationship where the following occur: No concerns reported Coding Level of Care Code Est Pt Level 3 (33697) Est Pt Prev Care 18-39y(45243) Diagnoses Encounter for general adult medical examination with abnormal findings Z00.01 Toenail deformity L60.8 Recurrent cold sores B00.1 Vitamin D deficiency E55.9 Additional Codes LEXY-7 Assessment Billing - LEXY-7 Assessment Tool: LEXY-7 Assessment 73873 ([id number]) PHQ-9 - 19942 - PHQ-9 Billing: Yes ([id number]) Assessment & Plan Assessment & Plan (1) Encounter for general adult medical examination with abnormal findings: Code(s): Z00.01 - Encounter for general adult medical examination with abnormal findings Category: Medical (2) Toenail deformity: Code(s): L60.8 - Other nail disorders Category: Medical (3) Recurrent cold sores: Code(s): B00.1 - Herpesviral vesicular dermatitis Category: Medical (4) Vitamin D deficiency: Code(s): E55.9 - Vitamin D deficiency, unspecified Category: Medical Plan Physical exam appointment - The patient is a 35-year-old female presenting for a wellness visit. - Vitamin D deficiency was previously noted, with the patient currently taking multivitamin supplements. - The patient reported hyperhidrosis affecting the axillary region, which she has learned to manage over time. - Approximately two years ago, an MRI revealed incidental findings deemed non- concerning by her neurologist, with no active follow-up required unless symptoms change. - The patient noted frequent episodes of cold sores starting late last year, for which she completed a three-month course of valacyclovir, ending with resolution of symptoms. - Toe discoloration and potential nail issues started approximately two months ago, coinciding with trauma caused by wearing high heels. The patient suspects a traumatic origin rather than fungal involvement. Difficult to say, she will provide me with the nail clipping so we can evaluate for fungus, right big toe Health Maintenance - Up-to-date on GARMENT PRESSER visits - Current with breast examinations through GARMENT PRESSER - Immunizations are current, including tetanus T-dap in 2019 - Monitoring and management of Vitamin D levels through lab tests [facility] Care - Managed by GARMENT PRESSER at [facility] - Neurologist involved post-MRI findings Employment - [employer] with a remote work setup from home - Participates in virtual fitness programs during work breaks Patient Instructions - Continue current vitamin D supplementation - Monitor and report any recurrence of cold sores - For nail issues, consider providing a nail clipping for fungal testing or consult a roll machine operator if necessary Orders: Orders Comprehensive [place]. Panel Fast Today B00.1 - Herpesviral vesicular dermatitis, E55.9 - Vitamin D deficiency, unspecified, L74.510 - Primary focal hyperhidrosis, axilla, Z00.01 - Encounter for general adult medical examination with abnormal findings Complete Blood Count Auto Diff Today B00.1 - Herpesviral vesicular dermatitis, E55.9 - Vitamin D deficiency, unspecified, L74.510 - Primary focal hyperhidrosis, axilla, Z00.01 - Encounter for general adult medical examination with abnormal findings Lipid Panel Today B00.1 - Herpesviral vesicular dermatitis, E55.9 - Vitamin D deficiency, unspecified, L74.510 - Primary focal hyperhidrosis, axilla, Z00.01 - Encounter for general adult medical examination with abnormal findings TSH reflex Free T4 Today B00.1 - Herpesviral vesicular dermatitis, E55.9 - Vitamin D deficiency, unspecified, L74.510 - Primary focal hyperhidrosis, axilla, Z00.01 - Encounter for general adult medical examination with abnormal findings Fungus Cult Hair/Skin/Nail Today B35.1 - Tinea unguium Vitamin D 25-OH (D2 and D3) Today B00.1 - Herpesviral vesicular dermatitis, E55.9 - Vitamin D deficiency, unspecified, L74.510 - Primary focal hyperhidrosis, axilla, Z00.01 - Encounter for general adult medical examination with abnormal findings
--- OUTSIDE RECORDS SUMMARY | 2025-03-03 11:55 | XMS_ITS | Clinical Summary ---
Author Organization [facility] Address [address] [place] [address] Care Team Providers Care Epic Cupid Analyst Name Role Phone Yazmin Tam TRAFFIC SIGN SUPERVISOR Primary Care Provider [phone]- [phone] Allergies No known active allergies Medications levonorgestreL (MIRENA) 20 mcg/24 hours (8 yrs) 52 mg IUD 1 each by intrauterine route 1 (one) time Active Active Problems Problem Noted Date Diagnosed Date History of COVID-19 06/06/2022 Overview (06/06/2022): 06/02/2022 Resolved Problems Problem Noted Date Diagnosed Date Resolved Date Paronychia of finger, right 05/17/2021 06/06/2022 Immunizations Immunization Administration Dates Next Due COVID-19 Pfizer SARS-CoV2 [...] 66 07/28/2022 9:08 AM EST Temperature 36.7 C (98 F) 07/28/2022 9:08 AM EST Respiratory Rate - [...] 2024 08/05/2021, 11/27/2020, 11/06/2020 Influenza Vaccine (#1) 2025 07/28/2022 Cervical Cancer Screening (Pap/HPV) 05/07/2027 05/07/2022 (Previously completed - report reviewed) DTaP,Tdap,and Td Vaccines (3 - Td or Tdap) 08/02/2029 08/02/2019, 09/01/2015 RSV Vaccine (SCDM) (1 - 1-do se 75+ series) 01/01/2063 Insurance [employer] Care Teams Epic Cupid Analyst Relationship Specialty Start Date End Date Yazmin Tam NP [address] [place] [address] PCP - General Family Medicine 07/29/22
== END 2025-03-03 12:26 | disposition home or self-care (01) ==
LOC: HO.HMCC 11:25
PROVIDERS: PCP Internal Medicine; Visit Provider Internal Medicine
DX: Z00.01 Encounter for general adult medical examination with abnormal findings (principal); L60.8 Other nail disorders; B00.1 Herpesviral vesicular dermatitis; E55.9 Vitamin D deficiency, unspecified

== ENCOUNTER → 2025-03-03 11:24 | Outpatient (BNVA) | payer OTHER, SELFPAY | PROVIDERS: PCP Internal Medicine; Visit Provider Internal Medicine | DX: Z00.01 Encounter for general adult medical examination with abnormal findings (principal); E55.9 Vitamin D deficiency, unspecified; R61 Generalized hyperhidrosis; L60.8 Other nail disorders; B00.1 Herpesviral vesicular dermatitis | CPT/HCPCS: 96127 ==

== ENCOUNTER 2025-03-08 07:58 | Outpatient (REF) | payer OTHER, SELFPAY ==
[2025-03-08 10:19] LABS: MANUAL DIFF FLAG NO
[2025-03-08 10:32] LABS: Hematocrit 38.9 % (37.0-47.0); Hemoglobin 13.4 g/dl (12.0-16.0); Imm Gran Abs Auto 0.03 X10*3/uL (0.00-0.03); Imm Gran Pct Auto 0.3 % (0.0-0.4); Lymphocytes Absolute Auto 2.1 X10*3/uL (1.2-4.9); Mean Corpuscular HGB Conc 34.4 g/dl (31.0-35.0); Mean Corpuscular Hemoglobin 30.9 pg (27.0-33.0); Mean Corpuscular Volume 89.8 fL (80.0-98.0); NRBC Abs Auto 0.000 X10*3/uL (0.0-0.012); NRBC Pct Auto 0.0 /100WBC (0.0-0.2); Platelet Count 226 X10*3/uL (160-400); Red Blood Count 4.33 X10*6/uL (4.20-5.50); White Blood Count 9.2 X10*3/uL (4.8-10.8)
[2025-03-08 10:54] LABS: Alanine Aminotransferase 11 U/L (0-31); Albumin Level 4.3 g/dL (3.5-5.0); Alkaline Phosphatase 39 U/L (39-117); Anion Gap 8 (12-20); Aspartate Amino Transferase 19 U/L (5-31); Blood Urea Nitrogen 9 mg/dL (9-16); Calcium 8.7 mg/dL (8.4-10.2); Carbon Dioxide 24 mmol/L (22-29); Chloride 110 mmol/L (96-108); Cholesterol 125 mg/dL (<200); Estimated Glomerular Filt Rate > 60; HDL Cholesterol 45 mg/dL (>40); Potassium 4.0 mmol/L (3.3-5.1); Sodium 138 mmol/L (135-145); Total Protein 6.7 g/dL (6.5-8.0); Triglycerides 63 mg/dL (<150)
[2025-03-12 13:03] LABS: Vitamin D 25-OH, D2 <4 ng/mL; Vitamin D 25-OH, D3 28 ng/mL; Vitamin D 25-OH, Total 28 ng/mL (30-100)
== END 2025-03-08 07:59 | disposition home or self-care (01) ==
LOC: HO.HMGCLDS 07:58
PROVIDERS: PCP Internal Medicine; Visit Provider Internal Medicine
DX: Z00.01 Encounter for general adult medical examination with abnormal findings (principal); B00.1 Herpesviral vesicular dermatitis; L74.510 Primary focal hyperhidrosis, axilla; E55.9 Vitamin D deficiency, unspecified
CPT/HCPCS: 36415; 80053; 80061; 82306; 84443; 85025